=== PATIENT | male | born 1960 | race Caucasian/White ===

== ENCOUNTER 2016-12-03 15:57 | Emergency (ER) | payer OTHER ==
[~2016-12-03] VITALS: Ht 188 cm; Wt 118.0 kg
[2016-12-03] MEDS ORDERED: SODIUM CHLORIDE 0.9% FLUSH 10 ML FLUSH IVF PRN (16:15)
--- NOTE | 2016-12-03 16:36 | PD ---
HPI Chief Complaint: Complaint Time Seen by Provider: 16:33 Travel History International Travel<30 days: No Contact w/Intl Traveler<30days: No Traveled to known affect area: No History of Present Illness HPI Patient is a 56-year-old male presenting to emergency for evaluation of urinary retention, incomplete emptying of his bladder, and a burning pressure sensation. Patient states he had the same symptoms 2 weeks ago while he was in the [place] on vacation. At that time he went to an emergency department where he had a leg bag placed and was given Bactrim. 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 He had no issues since that time until today. When he again reports retention, incomplete emptying, burning and pressure. Patient does report a history of BPH and had been on finasteride as well as tamsulosin. He is no longer on the finasteride but continues to take the tamsulosin. Patient from [place] and is currently on his way home. [facility] Past Medical History Genitourinary: Yes (BPH) Social History Tobacco Use: No Allergies-Medications (Allergen,Severity, Reaction): Coded Allergies: No Known Allergies (Unverified , 12/03/16) Review of Systems Except as stated in HPI: all other systems reviewed are Neg Genitourinary: Positive: Urgency, Decreased Urinary Output, Hesitancy Physical Exam Narrative GENERAL: Well-nourished, well-developed patient. SKIN: Focused skin assessment warm/dry. HEAD: Normocephalic. EYES: No scleral icterus. No injection or drainage. NECK: Supple, trachea midline. No JVD or lymphadenopathy. CARDIOVASCULAR: Regular rate and rhythm without murmurs, gallops, or rubs. RESPIRATORY: Breath sounds equal bilaterally. No accessory muscle use. GASTROINTESTINAL: Abdomen soft, non-tender, nondistended. MUSCULOSKELETAL: No cyanosis, or edema. BACK: Nontender without obvious deformity. No CVA tenderness. Data Data Last Documented VS Vital Signs Date Time Temp Pulse Resp B/P Pulse Ox O2 Delivery O2 Flow Rate FiO2 12/03/16 17:10 98.3 64 16 124/77 97 12/03/16 17:08 Room Air Orders Urinalysis - C+S If Indicated (12/03/16 16:07) Sodium Chloride 0.9% Flush (Ns Flush) (12/03/16 16:15) Continue Wilder/Suprapubic Cath (12/03/16 16:07) Labs Laboratory Tests Test 12/03/16 16:15 Urine Color LIGHT-YELLOW Urine Turbidity CLEAR Urine pH 5.0 Urine Specific [place] 1.005 Urine Protein NEG mg/dL Urine Glucose (UA) NEG mg/dL Urine Ketones NEG mg/dL Urine Occult Blood SMALL Urine Nitrite NEG Urine Bilirubin NEG Urine Urobilinogen LESS THAN 2.0 MG/DL Urine Leukocyte Esterase NEG Microscopic Urinalysis Comment CULT NOT INDICATED MDM Medical Decision Making Medical Screen Exam Complete: Yes Emergency Medical Condition: Yes Differential Diagnosis BPH versus UTI versus obstruction versus other Narrative Course Patient is a 56-year-old male presenting to emergency department for evaluation of urinary retention. Patient had similar symptoms 2 weeks ago while he was on vacation in the [place], repeat urinalysis today is negative. Patient will be sent home with the urinary catheter in place. He is encouraged to follow-up with his urologist when he returns home. He was advised to go to the nearest emergency department for any new or worsening symptoms if he had any issues while he was traveling. He verbalized understanding of these instructions. Patient is stable for discharge. Diagnosis Primary Impression: Urinary retention Referrals: Urologist Patient Instructions: General Instructions, Urinary Leg Bag (GEN), Urinary Retention in Men (DC) Additional Instructions: Follow-up with a urologist when you return home Go to the nearest emergency department for any new or worsening symptoms while traveling Continue home medications as previously prescribed Med/Other Pt SpecificInfo: No Change to Meds Disposition: 01 DISCHARGE HOME Condition: Stable Summer Petit [employer] Dec 03, 2016 16:36
[2016-12-03 16:37] LABS: BLOOD, URINE SMALL (NEG); GLUCOSE,URINE NEG (NEG); KETONE, URINE NEG (NEG); NITRITE,URINE NEG (NEG); URINE COLOR LIGHT-YELLOW (YELLW/STRAW)
[2016-12-03 16:40] LABS: COMMENT (UR) CULT NOT INDICATED; CULTURE IF INDICATED CULT NOT INDICATED
--- NOTE | 2016-12-03 16:47 | PD ---
Data Data Last Documented VS Vital Signs Date Time Temp Pulse Resp B/P Pulse Ox O2 Delivery O2 Flow Rate FiO2 12/03/16 16:32 16 Orders Urinalysis - C+S If Indicated (12/03/16 16:07) Sodium Chloride 0.9% Flush (Ns Flush) (12/03/16 16:15) Continue Wilder/Suprapubic Cath (12/03/16 16:07) Labs Laboratory Tests Test 12/03/16 16:15 Urine Color LIGHT-YELLOW Urine Turbidity CLEAR Urine pH 5.0 Urine Specific [place] 1.005 Urine Protein NEG mg/dL Urine Glucose (UA) NEG mg/dL Urine Ketones NEG mg/dL Urine Occult Blood SMALL Urine Nitrite NEG Urine Bilirubin NEG Urine Urobilinogen LESS THAN 2.0 MG/DL Urine Leukocyte Esterase NEG Microscopic Urinalysis Comment CULT NOT INDICATED MDM Supervised Visit with SUSANNE: Yes Narrative Course I, Dr. Davis, have reviewed the advance practice practioner's documentation and am in agreement, met with the patient face to face, made the diagnosis, and the medical decision making was done by me. *My assessment and Findings 56-year-old male here with acute urinary retention. Symptoms history of same over Easter week and had a catheter placed for acute retention. History of BPH and has been taking medications for this. He will remove the catheter himself as instructed by his physician and had recurrence of symptoms today prompting ER visit. Reproducible epigastric abdominal tenderness consistent with acute retention. Catheter was placed with return of fluid and improvement of patient's symptoms. Urinalysis negative for UTI, scant blood likely traumatic from catheter insertion. Patient will be discharged home with outpatient urology follow-up. Rhina Davis MD Dec 03, 2016 16:47
[2016-12-03 17:08] VITALS: BP 127/85; PULSE 80; RESP 16; O2SAT 96
[2016-12-03 17:10] VITALS: BP 124/77; TEMP 98.3
== END 2016-12-03 17:19 | disposition home or self-care (01) ==
LOC: NEPD 15:57
DX: R33.9 Retention of urine, unspecified (principal); N40.0 Benign prostatic hyperplasia without lower urinary tract symptoms
CPT/HCPCS: 81001; 99283